=== PATIENT | male | born 2000 | race Hispanic/Latino ===

== ENCOUNTER 2018-11-23 20:00 | Emergency (ER) | payer SELFPAY ==
[~2018-11-23] VITALS: Ht 177.8 cm; Wt 96.6 kg
[2018-11-23] MEDS ORDERED: LIDOCAINE 1% 5ML-MPF INJ ONE (20:45)
== END 2018-11-23 20:45 | disposition left against medical advice (07) ==
LOC: FSED 20:00
DX: L02.818 Cutaneous abscess of other sites (principal)